=== PATIENT | female | born 1945 | race Caucasian/White ===

== ENCOUNTER 2020-01-29 13:10 | Outpatient (CLI) | payer MEDICARE ==
--- NOTE | 2020-01-29 14:24 | CT ---
CT CHEST WITHOUT CONTRAST LOW DOSE PULMONARY SCREENIN01/29/20 COMPARISON: None. HISTORY: Personal history of nicotine dependence. FINDINGS: Lung screen specific (see Lung-RADS): No suspicious pulmonary nodule. There is scattered small posterior right upper lobe axial image 54 an d 55 micronodules measuring less than 3 mm. Potentially significant incidentals (Lung-RADS category S): Negative. Pulmonary incidentals: Severe background emphysema. Scarring in both lung apices. Within the lingula there is a lentiform sc ar with adjacent surgical clips likely iatrogenic. Moderate vascular calcifications of the aorta. Adjacent to the gallbladder fossa there appear to be c alcifications. Thoracic spine is intact. No suspicious osteoblastic or osteolytic lesions. No acute displaced rib fracture. IMPRESSION: 1. Lung RADS category 2: Benign appearance and behavior. Continue annual low dose screening gina mmended. 2. Lung RADS category S: Negative. No new or unknown potentially insignificant findings requirin g urgent additional evaluation. 3. Severe background emphysema as well as lingular scar, likely Iatrogenic. POS: [facility]
== END 2020-01-29 13:11 | disposition home or self-care (01) ==
LOC: BICCT 13:10
PROVIDERS: ATTEND Family Medicine
DX: Z12.2 Encounter for screening for malignant neoplasm of respiratory organs (principal); F17.210 Nicotine dependence, cigarettes, uncomplicated; J43.9 Emphysema, unspecified; J98.4 Other disorders of lung
CPT/HCPCS: G0297